=== PATIENT | male | born 1985 | race Caucasian/White ===

== ENCOUNTER 2022-04-20 17:53 | Emergency (ER) | payer BC, SELFPAY ==
--- NOTE | 2022-04-20 17:54 | ED.MALEGU ---
HPI - Male Genitourinary General Chief complaint: Urogenital-Male Stated complaint: Possible UTI Time Seen by Provider: 04/20/22 18:05 Source: patient, family (MOM), RN notes reviewed and old records reviewed Mode of arrival: ambulatory Limitations: no limitations History of Present Illness HPI Narrative: 36-year-old male presents to the [facility] with complaints of urinary frequency since Sunday, 2 days. Patient just finished chemotherapy 04/10. Denies any abdominal pain or chest pain. Denies fevers. No burning with urination. Denies any chances of STDs. Patient is Deaf, mom is using speak to talk or translation. States he started using a new protein powder and adding salt to his water day prior to symptoms starting. MD Complaint: other (Urinary frequency) Onset (ago): day(s) (2) Related Data Home Medications Medication Instructions Recorded Confirmed zolpidem 10 mg tablet (Ambien) 10 mg PO HS 04/20/22 04/20/22 Allergies Allergy/AdvReac Type Severity Reaction Status Date / Time acetaminophen Allergy Unknown Verified 04/20/22 18:06 dextromethorphan Allergy Unknown Verified 04/20/22 18:06 doxylamine Allergy Unknown Verified 04/20/22 18:06 Penicillins Allergy Unknown Verified 04/20/22 18:06 pseudoephedrine Allergy Unknown Verified 04/20/22 18:06 Review of Systems Review of Systems: All systems reviewed & are unremarkable except as noted in HPI and below Constitutional: Constitutional: Reports no additional constitutional complaints, Denies chills and Denies fever(s) Eyes: Eyes: Reports no additional eye complaints ENT: Reports system reviewed and no additional complaints, except as documented Cardiovascular: Cardiovascular: Reports no additional cardiovascular complaints Respiratory: Respiratory: Reports no additional respiratory complaints Gastrointestinal: Gastrointestinal: Reports no additional gastrointestinal complaints Genitourinary: Genitourinary: Reports as per HPI, Denies penile discharge, Reports urinary frequency and Denies urinary incontinence Musculoskeletal: Musculoskeletal: Reports no additional musculoskeletal complaints Integumentary/Breasts: Skin/Breast: Reports system reviewed and no additional complaints, except as docu Neurologic: Reports system reviewed and no additional complaints, except as documented Psychiatric: Psychiatric: Reports no additional psychiatric complaints Allergic/Immunologic: Allergic/Immunologic: Reports no additional allergic/immunologic complaints [facility] Past Medical History Medical History (Updated 04/20/22 @ 19:42 by Eileen Ojeda APRN) Deaf Spinal cord neoplasm Social History Social History (Updated 04/20/22 @ 19:42 by Eileen Ojeda APRN) Living arrangements: with family Comments At the time of my signature, I reviewed and agree with the nursing past medical, surgical, social, and family history. There is no relevant family history pertinent to the patient complaint. Exam Const: General: healthy appearing, no acute distress and alert Nutritional Appearance: well nourished Orientation/consciousness: patient oriented x3 Limitations: no limitations HENMT: Head: normal to inspection Ears: external ears normal Eyes: General: appearance normal, both eyes and all related structures Pupils: Equal, round and reactive pupils present Neck: Neck: normal visual inspection, no lymphadenopathy and no meningeal signs Chest: Chest palpation & inspection: normal inspection of the chest Resp: Effort & Inspection: normal respiratory effort and no use of accessory muscles Auscultation: clear to auscultation bilaterally, no crackles, no rales, no rhonchi and no wheezes Cardio: Rate: regular rate Rhythm: regular rhythm GI: GI Palp: Yes Soft to palpation and No Tenderness to palpation present (GI) Back/Spine/Pelvis: Cervical Spine: normal cervical lordosis Thoracic/Lumbar Spine: thoracic and lumbar spine normal to inspection Skin: General sk
[2022-04-20 18:04] VITALS: BP 145/96; PULSE 87; RESP 18; TEMP 37.6; O2SAT 100
[2022-04-20 18:07] VITALS: BP 145/96; PULSE 87; RESP 18; TEMP 37.6; O2SAT 100
== END 2022-04-20 18:21 | disposition home or self-care (01) ==
PROVIDERS: Emergency Provider Nurse Practitioner; PCP Family Medicine Sports Medicine
DX: R35.0 Frequency of micturition (principal); H91.90 Unspecified hearing loss, unspecified ear; Z85.848 Personal history of malignant neoplasm of other parts of nervous tissue
CPT/HCPCS: 81003; 99212; G0463

== ENCOUNTER 2024-04-23 08:46 | Outpatient (CLI) | payer BC, SELFPAY ==
[2024-04-23 09:36] LABS: Anion Gap 9 mmol/L (4-12); Blood Urea Nitrogen 36 mg/dL (9-20); Calcium 9.1 mg/dL (8.4-10.2); Carbon Dioxide 26 mmol/L (22-30); Chloride 106 mmol/L (98-107); Estimated Glomerular Filt Rate 56; Glucose 97 mg/dL (65-110); Potassium 4.4 mmol/L (3.4-5.0); Sodium 141 mmol/L (137-145)
[2024-04-23 09:37] LABS: Creatinine Urine 21.3 mg/dL; Total Protein Urine Random 48 mg/dL; Ur Ttl Prot Creatinine Ratio 2.25 mg/mg (0-0.20)
== END 2024-04-23 08:47 | disposition home or self-care (01) ==
PROVIDERS: PCP Family Medicine Sports Medicine
DX: R80.9 Proteinuria, unspecified (principal); Q85.02 Neurofibromatosis, type 2; I12.9 Hypertensive chronic kidney disease with stage 1 through stage 4 chronic kidney disease, or unspecified chronic kidney disease; N18.9 Chronic kidney disease, unspecified
CPT/HCPCS: 36415; 80048; 82570; 84156

== ENCOUNTER 2025-07-04 09:02 | Emergency (ER) | payer BC, SELFPAY ==
--- OUTSIDE RECORDS SUMMARY | 2003-05-18 10:00 | XMS_ITS | Continuity of Care Document ---
Author Organization [facility] Address [address] [place] [address] [address] [place] [address] Phone Care Team Providers Care Fleet Manager Name Role Phone Kaila Wilde Unavailable Unavailable Advance Directives Directive Yes / No Effective Date File Name No Information Encounters Encounter Description Practice Location Reason(s) For Visit Diagnoses Date Provider Providers Copied on Encounter [facility], [address], [place], [place], [id number], [place] tel:[phone] [facility] No Information [address]. [address] [facility] , [address], [place], [address], [place]. tel:[phone] Family History Family Member Type Diagnosis Age At Onset No Information Payers Payer name Insurance type Covered republican ID Authoriza tion(s) No Information Social History Type Description Quantity Date Captured Comments Sex Male Smoking Status No Information Chief Complaint And Reason For Visit No Information Reason For Referral Reason For Referral No Information History Of Present Illness Encounter Date Complaint History Of Prese nt Illness No Information Functional Status Date Functional Assessmen t No Information Instructions Date Instruction Additional Infor mation No Information Assessments Type Assessment Date No Information Patient Care Teams Name Effective Dates (start - stop) Status Members No Information
--- OUTSIDE RECORDS SUMMARY | 2003-05-18 10:00 | XMS_ITS | Continuity of Care Document ---
Author Organization [facility] Address [address] [place] [address] [address] [place] [address] Phone Care Team Providers Care Infantry Assaultman Name Role Phone Kaila Wilde Unavailable Unavailable Advance Directives Directive Yes / No Effective Date File Name No Information Encounters Encounter Description Practice Location Reason(s) For Visit Diagnoses Date Provider Providers Copied on Encounter [facility], [address], [place], [place], [id number], [place] tel:[phone] [facility] No Information [address] [facility] , [address], [place], [address], [place]. tel:[phone] Family History Family Member Type Diagnosis Age At Onset No Information Payers Payer name Insurance type Covered democrat ID Authoriza tion(s) No Information Social History [...]
--- OUTSIDE RECORDS SUMMARY | 2025-07-04 09:06 | XMS_ITS | Encounter Summary ---
Author Organization [facility] Address [address] [place] [address] Care Team Providers Care Slipman Name Role Phone None, Physician Primary Care Provider Unavailabl e Encounter Details Date Type Department Care Team (Late st Contact Info) Description 05/11/2025 Lab Requisition [facility] - DermPath Lab [address] [place] [id number] Zahraa Farfan MD [address] [place] [address] Social History Tobacco Use Types Packs/Day Years Used Date Smoking Tobacco: Never Smokeless Tobacco: Never Sex and Gender Information Value Date Recorded Sex Assigned at Not on file 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 Gender Identity Not on file Sexual Orientation Not on file documented as of this encounter Plan of Treatment Not on file documented as of this encounter Procedures Procedure Name Priority Date/Time Associated Diagnosis Comments DERMATOPATHOLOGY Routine 05/11/2025 3:36 PM CDT documented in this encounter Results * DERMATOPATHOLOGY (05/11/2025 3:36 PM CDT) Case Report Dermatopathology Report Case: [id number] Authorizing Provider: Zahraa Farfan MD Collected: 05/11/2025 03:36 PM Ordering Location: [facility] - Received: 05/12/2025 04:35 PM DermPath Lab Pathologist: Meghan Peralta MD Specimen: Skin, upper back 4:38 PM CDT DERMATOPATHOLOGY LABORATORY Final Diagnosis Specimen A. SKIN, upper back: BASAL CELL CARCINOMA (C44.519) NOT PRESENT AT MARGIN DERMAL SCAR (L90.5) 4:[address] [facility] DERMATOPATHOLOGY LABORATORY at 1638 CDT Clinical History BCC. Check margins 4:38 PM T DERMATOPATHOLOGY LABORATORY Gross Description Specimen A: Received is one formalin filled container labeled with the patient's name and designated upper back.The specimen consists of an ellipse measuring [id number] mm and is oriented with the suture at the 12 o'clock position labeled on the requisition as 12 o'clock. The 12 to 6 o'clock margin is inked green. The 6 o'clock to 12 o'clock margin is inked red. The 12 o'clock tip is submitted in cassette 1. The 6 o'clock tip is submitted in cassette 2. The remainder of the ellipse is serially sectioned and submitted in cassettes 3-7. Jar 0. 4:[address] [facility] DERMATOPATHOLOGY LABORATORY Microscopic Description Specimen A. SKIN, upper back: Within the dermis there are aggregates of basaloid cells with a high nuclear to cytoplasmic ratio and peripheral palisading. This lesion is not present at the margin of the specimen. There are fibroblasts and collagen bundles oriented parallel to the skin surface with elongated blood vessels, some of which are oriented perpendicular to the skin surface. 4:38 PM T DERMATOPATHOLOGY LABORATORY Disclaimer An external and internal positive and negative controls are appropriate for the histochemical, immunohistochemical and immunofluorescence stain(s) in this case (if any), except where stated explicitly. The performance characteristics of the stain(s) cited in this report were developed and its performance characteristic determined by the Dermatopathology Laboratory at [facility], directed by Dr. Mikel Figueroa. These tests need not be, and therefore are not, approved by the [place] Food and Drug Administration. The tests are used for clinical purposes. Billing Codes Specimen Charges Stain Charges 42378 1 4:38 PM CDT DERMATOPATHOLOGY LABORATORY Embedded Images 4:38 PM CDT DERMATOPATHOLOGY LABORATORY Pathology/Cytolo gy TISSUE SPECIMEN FROM SKIN / Unknown 05/11/2025 3:36 PM CDT 05/12/2025 4:35 PM CDT Zahraa Farfan MD LAB - PATHOLOGY/CYTOLOGY ORDERA BLES Final Result DERMATOPATHOLOGY LABORATORY [facility] - Department of Dermatology [facility] Medicine [address] [place] [address], [address] [phone] documented in this encounter Visit Diagnoses Not on filedocumented in this encounter Care Teams Slipman Relationship Specialty Start Date End Date None, Physician [address] [place] [address] PCP - General 09/14/23 documented as of this encounter
--- OUTSIDE RECORDS SUMMARY | 2025-07-04 09:06 | XMS_ITS | Clinical Summary ---
Author Organization [facility] Address [address] [place] [address] Care Team Providers Care Correspondence Representative Name Role Phone None, Physician Primary Care Provider Unavailabl e Source Comments [facility],non-owned Affiliates and Associated Physician Practices is amultiple site organization consisting of ambulatory clinics and hospital sitesin [place], [place], [place] and [place]. This disclosure is being madepursuant to the Care Everywhere program and may not contain all information available regarding this patient. Last updated 18.[facility] [employer] Allergies Active Allergy Reactions Criticality Noted Date Comments Penicillins Other,Rash Medium 11/27/2011 felt unwell Medications * Be aware that medications may not be up to date on this document. Alwaysverify current medications with the patient. zolpidem (AMBIEN) 10 MG tablet Take 1 (one) tablet by mouth nightly as needed 1 Active multivitamins (ONE A DAY) capsule Take 1 (one) capsule by mouth once daily Active ibuprofen (MOTRIN) 200 MG tablet Take 1 (one) tablet by mouth every 8 hours as needed Active cetirizine (ZYRTEC) 10 MG tablet Take 1 (one) tablet by mouth once daily Active gadopentetate dimeglumine (MAGNEVIST) 469.01 MG/ML injection by Intravenous route Contrast - Once 10 mL 1 Active amLODIPine-benaz epril (Lotrel) 5-20 MG capsule Take 1 (one) capsule by mouth once daily 3 Active Active Problems Problem Noted Date Diagnosed Date Keratoconjunctivitis sicca of both eyes 05/04/20 21 Overview (08/03/2021): Last Assessment & Plan: -Successful application and removal training with RR today in office. Educated patient on safe lens handling and disinfection. Written direction provided. Educated if redness/pain/decrease in vision remove contact lens and call clinic or seek emergency treatment. States agreement and understanding. Order new right and left lens with changes, MD. Follow up 3 weeks, sooner if any changes in vision or comfort Meibomian gland disease 05/04/2021 Overview (08/03/2021): Last Assessment & Plan: Lid hygiene/warm compresses Regular astigmatism of both eyes 05/04/2021 Overview (08/03/2021): Last Assessment & Plan: -Improved VA OS with scleral lens in office. Will proceed with scleral lens. 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 Gradual hearing loss in right ear, deafened by 2007. H/o anterior falcine meningioma resected by Dr. Flores 11/28/2011. 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 Peripheral schwannomas. Large lesion left brachial plexus (C4-5),PET/CT scan performed in September,, was not suggestive of malignant degeneration of this tumor. Single cutaneous schwannoma over left flank Last Assessment & Plan: Monitor Encounters Date Type Department Care Team Description 06/23/2025 Telephone [facility] - Centralized Scheduling [address] [place] [phone] Fco Garcia MD Reschedule Appointment 06/22/2025 Telephone [facility] - Centralized Scheduling [address] [place] [phone] Fco Garcia MD Reschedule Appointment 06/19/2025 Telephone [facility] - Centralized Scheduling [address] [place] [phone] Fco Garcia MD Reschedule Appointment 05/15/2025 1:45 PM CDT Office Visit [facility] - ENT [address], [address] [phone] Fco Garcia MD Neurofibromatosis II (HCC) (Primary Dx); Chronic diffuse otitis externa of both ears; Bilateral impacted cerumen; Sensorineural hearing loss (SNHL) of both ears; Vestibular schwannoma (HCC) 05/15/2025 Travel 05/11/2025 Lab Requisition [facility] - DermPath Lab [address] [facility] [place] [phone] Zahraa Farfan MD from Last 3 Months Immunizations Immunization Administration Dates Next Due INFLUENZA VACCINE 11/29/2011 INFLUENZA VACCINE, QUADR. 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 Gender Identity Not on file Sexual Orientation Not on file Last Filed Vital Signs Vital Sign Reading Time Taken Comments Blood Pressure 127/85 05/15/2025 1:55 PM CDT Pulse 89 05/15/2025 1:55 PM CDT Temperature - - Respiratory Rate - - Oxygen Saturation - - Inhaled Oxygen Concentration - - Weight 79.4 kg (175 lb) 05/15/2025 1:55 PM CDT Height 175.3 cm (5' 9) 05/15/2025 1:55 PM CDT Body Mass Index 25.84 05/15/2025 1:55 PM CDT Plan of Treatment Health Maintenance Due Date Last Done Comments LIPID TESTING 1984 HIV SCREENING 1999 HEPATITIS C SCREENING 06/14/2002 DTAP/TDAP/TD VACCINES (1 - Tdap) 2003 HEPATITIS B VACCINE (1 of 3 - 19+ 3-dose series) 2003 HPV VACCINE (1 - 3-dose SCDM series) 2011 COVID-19 VACCINE ( - 2023- season) 2024 SCREENING FOR DIABETES 09/19/2024 DEPRESSION SCREENING 11/05/2024 INFLUENZA VACCINE (#1) 2025 , 08/07/2022, 08/22/2021, Additional history exists ZOSTER VACCINE (1 of 2) 2034 HIB VACCINE Aged Out No longer eligi ble based on patient's age to complete this topic MENINGOCOCCAL (Group B) VACCINE SHARED DECISION-MAKING Aged Out No longer eligible based on patient's age to complete this topic MENINGOCOCCAL GROUPS A/C/Y/W VACCINE Aged Out No longer eligible based on patient's age to complete this topic PNEUMOCOCCAL VACCINE Aged Out No long er eligible based on patient's age to complete this topic Procedures Procedure Name Priority Date/Time Associated Diagnosis Comments ME REMOVE CERUMEN IMPACTED W INSTR CASSIDY Routine 05/15/2025 1:56 PM CDT Bilateral impacted cerumen DERMATOPATHOLOGY Routine 05/11/2025 3:36 PM CDT from Last 3 Months Results * ME REMOVE CERUMEN IMPACTED W INSTR CASSIDY (05/15/2025 1:56 PM CDT) Narrative Fco Garcia MD - 05/15/2025 1:56 PM CDT Fco Garcia MD 05/15/2025 2:04 PM Procedure: Binocular Microscopic Removal of Impacted Cerumen AU Indications: Cerumen impaction obscuring the tympanic membrane. Findings: See main note. Procedure Note: After verbal consent was obtained, the binocular operative microscope was brought into position. An otologic speculum was inserted into the cartilaginous external auditory canal. Cerumen was removed using a combination of cerumen loops, suction, and alligator forceps. There was no bleeding Fco Garcia MD Fco Garcia MD PROCEDURE/MINOR SURGICAL OR DERABLES Final Result * DERMATOPATHOLOGY (05/11/2025 3:36 PM CDT) Case Report Dermatopathology Report Case: [id number] Authorizing Provider: Zahraa Farfan MD Collected: 05/11/2025 03:36 PM Ordering Location: [facility] - Received: 05/12/2025 04:35 PM DermPath Lab Pathologist: Meghan Peralta MD Specimen: Skin, upper back 4:38 PM CDT DERMATOPATHOLOGY LABORATORY Final Diagnosis Specimen A. SKIN, upper back: BASAL CELL CARCINOMA (C44.519) NOT PRESENT AT MARGIN DERMAL SCAR (L90.5) 4:38 PM CDT DERMATOPATHOLOGY LABORATORY at 1638 CDT Clinical History BCC. Check margins 4:38 PM CDT DERMATOPATHOLOGY LABORATORY Gross Description Specimen A: Received is one formalin filled container labeled with the patient's name and designated upper back.The specimen consists of an ellipse measuring [id number] mm and is oriented with the suture [...] in cassettes 3-7. Jar 0. 4:38 PM CDT DERMATOPATHOLOGY LABORATORY Microscopic Description Specimen A. SKIN, [...] perpendicular to the skin surface. 4:38 PM CDT DERMATOPATHOLOGY LABORATORY Disclaimer An external and internal positive and negative controls are appropriate for the histochemical, immunohistochemical and immunofluorescence stain(s) in this case (if any), except where stated explicitly. The performance characteristics of the stain(s) cited in this report were developed and its performance characteristic determined by the Dermatopathology Laboratory at [facility], directed by Dr. Mikel Figueroa. These tests need not be, and therefore are not, approved by the [place] Food and Drug Administration. The tests are used for clinical purposes. Billing Codes Specimen Charges Stain Charges 35385 1 4:38 PM CDT DERMATOPATHOLOGY LABORATORY Embedded Images 4:38 PM CDT DERMATOPATHOLOGY LABORATORY Pathology/Cytolo gy TISSUE SPECIMEN FROM SKIN / Unknown 05/11/2025 3:36 PM CDT 05/12/2025 4:35 PM CDT us Zahraa Farfan MD LAB - PATHOLOGY/CYTOLOGY ORDERA JORGE ALBERTO Final Result DERMATOPATHOLOGY LABORATORY [facility] - Department of Dermatology [place] [address] [place] [address], [facility] [phone] from Last 3 Months Insurance ANTHEM Care Teams Correspondence Representative Relationship Specialty Start Date End Date None, Physician [address] [place] [address] PCP - General 09/14/23
--- OUTSIDE RECORDS SUMMARY | 2025-07-04 09:09 | XMS_ITS | Encounter Summary ---
Author Organization [facility] Address [address] [place] [address] Care Team Providers Care Head Miller Name Role Phone None, Physician Primary Care Provider Unavailabl e Encounter Details Date Type Department Care Team (Late st Contact Info) Description 01/15/2025 Lab Requisition [facility] - DermPath Lab [address] [place] [id number] Katie Coles MD [address] [facility] [address] [place] [address] Social History Tobacco Use Types Packs/Day Years Used Date Smoking Tobacco: Never Smokeless Tobacco: Never Sex and Gender Information Value Date Recorded Sex Assigned at Not on file Legal Sex Male 5:34 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[employer] Gender Identity Not on file Sexual Orientation Not on file documented as of this encounter Plan of Treatment Not on file documented as of this encounter Procedures Procedure Name Priority Date/Time Associated Diagnosis Comments DERMATOPATHOLOGY Routine 01/15/2025 11:4 3 AM CDT documented in this encounter Results * DERMATOPATHOLOGY (01/15/2025 11:43 AM CDT) Case Report Dermatopathology Report Case: [id number] Authorizing Provider: Katie Coles MD Collected: 01/15/2025 11:43 AM Ordering Location: [facility] - Received: 01/16/2025 07:12 AM DermPath Lab Pathologist: Armida Price MD Specimen: Skin, upper back 2:21 PM CDT DERMATOPATHOLOGY LABORATORY Final Diagnosis Specimen A. SKIN, upper back: BASAL CELL CARCINOMA, SUPERFICIAL MULTIFOCAL (C44.519) 2:21 PM CDT DERMATOPATHOLOGY LABORATORY at 1421 CDT Clinical History R/O BCC 2:21 PM CDT DERMATOPATHOLOGY LABORATORY Gross Description Specimen A: Received is one formalin filled container labeled with the patient's name and designated upper back. The specimen consists of a shave biopsy measuring 12x9x1 mm. Jar 0. 2:21 PM CDT DERMATOPATHOLOGY LABORATORY Microscopic Description Specimen A. SKIN, upper back: Attached to the undersurface of the epidermis, there are small aggregates of basaloid cells with a high nuclear to cytoplasmic ratio and peripheral palisading. 2:21 PM CDT DERMATOPATHOLOGY LABORATORY Disclaimer An external and internal positive and negative controls are appropriate for the histochemical, immunohistochemical and immunofluorescence stain(s) in this case (if any), except where stated explicitly. The performance characteristics of the stain(s) cited in this report were developed and its performance characteristic determined by the Dermatopathology Laboratory at [facility], directed by Dr. Mikel Figueroa. These tests need not be, and therefore are not, approved by the [place] Food and Drug Administration. The tests are used for clinical purposes. Billing Codes Specimen Charges Stain Charges 09811 1 2:21 PM CDT DERMATOPATHOLOGY LABORATORY Embedded Images 2:21 PM CDT DERMATOPATHOLOGY LABORATORY Pathology/Cytolo gy TISSUE SPECIMEN FROM SKIN / Unknown 01/15/2025 11:43 AM CDT 01/16/2025 7:12 AM CDT us Katie Coles MD LAB - PATHOLOGY/CYTOLOGY ORD ERABLES Final Result DERMATOPATHOLOGY LABORATORY [facility] - Department of Dermatology [address], [address] [phone] documented in this encounter Visit Diagnoses Not on filedocumented in this encounter Care Teams Head Miller Relationship Specialty Start Date End Date None, Physician [address] [place] [address] PCP - General 09/14/23 documented as of this encounter
[2025-07-04 09:13] VITALS: BP 116/82; PULSE 72; RESP 18; TEMP 36.4; O2SAT 100
--- NOTE | 2025-07-04 09:42 | ED.URI ---
HPI - URI/Sore Throat General Chief Complaint: Upper Respiratory Infection Stated Complaint: coughing Time Seen by Provider: 07/04/25 09:05 Source: patient and family ( mother) Mode of arrival: ambulatory Limitations: other ( patient deaf but uses commercial producer nikole) History of Present Illness HPI Narrative: 40-year-old male presents to [facility] accompanied by his mother for complaints of continued productive cough for the past week to 10 days. Patient reports that he had body aches, chills and runny nose last week but that has since improved. patient has been taking [id number] cough medication, DayQuil, drinking hot tea and completing warm saltwater gargles with little relief. Patient denies history of pneumonia or bronchitis Onset (ago): week(s) (1) Description of mucous: green Able to tolerate fluids by mouth: Yes Treatments prior to arrival: cold medicine Related Data Home Medications ?Medication ?Instructions ?Recorded ?Confirmed ?Last Taken ?Type amlodipine 5 mg-benazepril 20 mg cap 07/04/25 Unknown History capsule Allergies Allergy/AdvReac Type Severity Reaction Status Date / Time acetaminophen Allergy Unknown Verified 04/20/22 18:06 dextromethorphan Allergy Unknown Verified 04/20/22 18:06 doxylamine Allergy Unknown Verified 04/20/22 18:06 Penicillins Allergy Unknown Verified 04/20/22 18:06 pseudoephedrine Allergy Unknown Verified 04/20/22 18:06 Review of Systems Constitutional: Constitutional: Denies chills, Denies fatigue, Denies fever(s) and Denies weakness ENT: Denies vertigo, Denies dizziness, Denies epistaxis, Denies nasal congestion and Denies sore throat Cardiovascular: Cardiovascular: Denies chest pain Respiratory: Respiratory: Reports cough, Denies dyspnea and Denies wheezing Gastrointestinal: Gastrointestinal: Denies diarrhea, Denies nausea and Denies vomiting Musculoskeletal: Musculoskeletal: Denies arthralgias and Denies joint swelling Integumentary/Breasts: Skin/Breast: Denies pruritus, Denies erythema and Denies rash Neurologic: Denies vertigo, Denies dizziness, Denies syncope and Denies headache(s) [facility] Past Medical History Medical History Deaf Spinal cord neoplasm Social History Social History (Reviewed 07/04/25 @ 09:45 by IWONA Gaviria Living arrangements: with family Comments At time of signature, I agree with nursing past medical, surgical, social and family history. There is no relevant family history pertinent to the presenting complaint. Exam Const: General: healthy appearing and no acute distress Nutritional Appearance: well nourished Orientation/consciousness: patient oriented x3 Limitations: no limitations HENMT: Head: normal to inspection Ears: external ears normal, TM's normal bilaterally and EAC's normal Face/Nose/Sinus: Normal external nose present Throat: posterior oropharynx normal and uvula midline Eyes: Conjunctivae: conjunctivae normal Neck: Neck: normal visual inspection Resp: Effort & Inspection: normal respiratory effort and not labored Auscultation: clear to auscultation bilaterally, no crackles, no rales, no rhonchi and no wheezes Other: Frequent harsh productive cough noted Cardio: Rate: regular rate Rhythm: regular rhythm Heart sounds: no murmurs Skin: General skin exam: normal color Rashes: no rashes Wounds: no wounds Neuro: General: patient oriented x3 Speech: normal speech Gait exam (Neuro): Normal gait present Psych: Affect: normal affect Attitude: cooperative Course Course Level of Care: Express Care Visit Vital Signs Vital signs: Vital Signs Temperature 36.4 C 07/04/25 09:13 Pulse Rate 72 07/04/25 09:13 Respiratory Rate 18 07/04/25 09:13 Blood Pressure 116/82 07/04/25 09:13 Pulse Oximetry 100 07/04/25 09:13 Oxygen Delivery Room Air 07/04/25 09:13 Temperature 36.4 C 07/04/25 09:13 Pulse Rate 72 07/04/25 09:13 Respiratory Rate 18 07/04/25 09:13 Blood Pressure 116/82 07/04/25 09:13 Pulse Oximetry 100 07/04/25 09:13 Oxygen Delivery Room Air 07/04/25 09:13 MDM - URI/Sore Throat MDM Narrative Medical decision making narrative: will start patient on antibiotic, cough medication take Claritin for continued cough symptoms. Instructed patient to follow-up with primary care provider if symptoms are not improved and proceed to the emergency room if symptoms worsen Differential Diagnosis Differential diagnosis: Likely otitis media, sinusitis and viral infection Critical Care Time Critical Care Time Critical Care Time: No Discharge Plan Discharge Clinical Impression: Upper respiratory infection Qualifiers: URI type: unspecified URI Qualified Code(s): J06.9 - Acute upper respiratory infection, unspecified Patient Disposition: Home Condition: Stable Instructions: Antibiotic Form, Upper Respiratory Infection (ED) Additional Instructions: take Zithromax as prescribed Take Tessalon as needed for cough Take Claritin daily Follow-up with primary care provider if symptoms are not improved proceed to the emergency room if symptoms worsen Patient Language: Spanish Prescriptions: New azithromycin [Zithromax Z-Tim] 250 mg tablet See Rx Instructions .ROUTE .COMPLEX Qty: 6 0RF Rx Instructions: For 250 mg dose pack: take 500 mg today (day 1), then 250 mg for 4 days (days 2-5) benzonatate 100 mg capsule 100 mg PO BID PRN (Reason: cough) Qty: 14 0RF loratadine [Claritin] 10 mg tablet 10 mg PO DAILY Qty: 30 0RF No Action amlodipine-benazepril 5-20 mg capsule Follow-up/Referrals: Bev,Mal Goetz MD [Primary Care Provider, Unknown] Time of Disposition: 09:51
== END 2025-07-04 09:54 | disposition home or self-care (01) ==
PROVIDERS: Emergency Provider Nurse Practitioner Family; PCP Family Medicine
DX: J06.9 Acute upper respiratory infection, unspecified (principal); H91.90 Unspecified hearing loss, unspecified ear; Z85.848 Personal history of malignant neoplasm of other parts of nervous tissue
CPT/HCPCS: 99213; G0463